=== PATIENT | female | born 1955 | race Caucasian/White ===

== ENCOUNTER 2016-08-22 20:52 | Inpatient (IN) | payer OTHER ==
[~2016-08-22] VITALS: Ht 165.1 cm; Wt 95.7 kg
--- NOTE | ~2016-08-22 | EKG ---
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
--- NOTE | ~2016-08-22 | 2DMMODE ---
[facility] [address] [place] [address] 2 D/M-MODE ECHOCARDIOGRAM Name: KENISHA EVANGELISTA Room #: 212-P [facility] IN ..#: [id number] Admission: 08/23/16 Attend Phys: Quan Cadena MD Discharge: Date of : 59 Date of Service: 08/23/16 1639 Report #: [id number] THIS REPORT FOR: //name// APPROVED REPORT Study performed: 08/23/2016 14:53:41 EXAM: Comprehensive 2D, Doppler, and color-flow Echocardiogram Patient Location: Bedside Room #: 212 Blood Pressure: 100/65 mmHg HR: 88 bpm Other Information Study Quality: Adequate Technically limited study due to poor endocardial definition. Indications Dyspnea Chest Pain Hypertension/HDD Echo Enhancing Agent Indication: Endocardial border delineation Agent/Amount Used: Definity 2 cc 2D Dimensions LVEF(%): 60.28 (>50%) IVSd: 12.40 (7-11mm) LVOT Diam: 20.72 (18-24mm) LVDd: 40.65 mm PWd: 13.35 (7-11mm) Ascending Ao: 26.06 (22-36mm) LVDs: 27.75 (25-40mm) Aortic Root: 28.31 mm Espinosa's LVEF: 60.28 % Volumes Left Atrial Volume (Systole) Single Plane 4CH: 29.97 mL Single Plane 2CH: 33.00 mL LA ESV Index: 18.00 mL/m2 Aortic Valve [facility] [place] [place] [address] 2 D/M-MODE ECHOCARDIOGRAM Name: KENISHA EVANGELISTA Room #: 212-P [facility] IN ..#: [id number] Admission: 08/23/16 Attend Phys: Quan Cadena MD Discharge: Date of : 59 Date of Service: 08/23/16 1639 Report #: [id number] AoV Peak Erik.: 1.33 m/s AO Peak Gr.: 7.04 mmHg LVOT Max P.17 mmHg LVOT Max V: 1.14 m/s Mitral Valve E/A Ratio: 1.0 MV Decel. Time: 180.83 ms MV E Max Erik.: 0.83 m/s MV A Erik.: 0.80 m/s MV PHT: 52.44 ms Pulmonary Valve PV Peak Erik.: 0.81 m/s PV Peak Gr.: 2.62 mmHg Pulmonary Vein P Vein S: 41.6 m/s P Vein D: 32.7 m/s P Vein A Dur.: 28.6 m/s Left Ventricle The left ventricle is normal size. Mild concentric left ventricular hypertrophy. The left ventricular systolic function is normal. The left ventricular ejection fraction is within the normal range. LVEF is 60-65%. Grade I - abnormal relaxation pattern. Right Ventricle The right ventricle is normal size. The right ventricular systolic function is normal. Atria The left atrium size is normal. The right atrium size is normal. Aortic Valve The aortic valve is normal in structure. Aortic valve is calcified. Trace aortic regurgitation. There is no aortic valvular stenosis. Mitral Valve The mitral valve is normal in structure. There is no mitral valve regurgitation noted. No evidence of mitral valve stenosis. Tricuspid Valve The tricuspid valve is normal in structure. There is no tricuspid valve stenosis. There is no tricuspid valve regurgitation noted. [facility] [place] [address] 2 D/M-MODE ECHOCARDIOGRAM Name: KENISHA EVANGELISTA Room #: 212-P [facility] IN M.R.#: [id number] Admission: 08/23/16 Attend Phys: Quan Cadena MD Discharge: Date of : 59 Date of Service: 08/23/16 1639 Report #: [id number] Pulmonic Valve The pulmonary valve is normal in structure. There is no pulmonic valvular regurgitation. Great Vessels The aortic root is normal in size. IVC is not well visualized. Pericardium There is no pericardial effusion. <Conclusion> Technically difficult study. The left ventricle is normal size. Mild concentric left ventricular hypertrophy. The left ventricular systolic function is normal. Grade I - abnormal relaxation pattern. The right ventricle is normal size. The left atrium size is normal. Trace aortic regurgitation. The mitral valve is normal in structure. There is no pericardial effusion. <ELECTRONICALLY SIGNED> By: Russel Ellis MD 08/23/16 1639 1639 1639 Russel Ellis MD /INF
[2016-08-22 21:06] VITALS: BP 132/84
[2016-08-22 23:39] LABS: ABSOLUTE NEUTROPHILS 3.4 thou/uL (1.4-8.2); BASOPHILS 1.3 % (0.0-2.0); EOSINOPHILS 3.9 % (0.0-3.0); HEMOGLOBIN 13.1 gm/dL (12.0-15.0); LYMPHOCYTES 34.6 % (24.0-44.0); MCH 29.5 pg (26.0-34.0); MCHC 33.7 g/dL (28.0-37.0); MCV 87.4 fL (80.0-100.0); PLATELET COUNT 361 thou/uL (150-400); POLYS 52.2 % (36.0-66.0); RBC 4.46 mil/uL (4.20-5.00); RDW 14.1 % (10.5-14.5); WBC 6.4 thou/uL (4.0-11.0)
[2016-08-22 23:44] LABS: MANUAL DIFF NO
[2016-08-22 23:49] LABS: ANION GAP 6 mmol/L (7-16); BUN 12 mg/dL (7-18); CALCIUM 9.4 mg/dL (8.5-10.1); CHLORIDE 101 mmol/L (98-107); CO2 32 mmol/L (21-32); CREATININE 1.1 mg/dL (0.6-1.0); GLUCOSE 135 mg/dL (74-106); POTASSIUM 4.2 mmol/L (3.5-5.1); SODIUM 139 mmol/L (136-145)
[2016-08-23] VITALS (9 sets, daily range): BP systolic 93–125; BP diastolic 55–77
[2016-08-23 00:02] LABS: NT-PRO BRAIN NAT PEPTIDE 7 pg/mL (<300); TROPONIN-I < 0.04 ng/mL (<0.04-0.07)
[2016-08-23] MEDS ORDERED: CLONAZEPAM 0.50.5 M1 PO (00:10)
[2016-08-23] MEDS ORDERED: LEXAPRO 10 MG T10 M2 PO (00:10)
[2016-08-23] MEDS ORDERED: LEVOTHYROXINE0.05 MG PO (00:11)
[2016-08-23] MEDS ORDERED: MIRAPEX0.5 MG PO (00:11)
[2016-08-23] MEDS ORDERED: AMITRIPTYLINE H25 M2 PO (00:11)
[2016-08-23] MEDS ORDERED: WELLBUTRIN XL300 MG PO (00:12)
[2016-08-23] MEDS ORDERED: NEURONTIN 300300 M1 PO (00:12)
[2016-08-23] MEDS ORDERED: PROTONIX40 M1 PO (00:14)
[2016-08-23] MEDS ORDERED: LOSARTAN-HCTZ1 EACH PO (00:14)
[2016-08-23] MEDS ORDERED: CARAFATE 1 GM TA1 G1 PO (00:15)
[2016-08-23] MEDS ORDERED: ZOCOR20 MG PO (00:15)
[2016-08-23 11:15] LABS: CHOLESTEROL 205 mg/dL (<200); HDL CHOLESTEROL 40 mg/dL (>40); LDL CHOLESTEROL 113 mg/dL (<100); TC:HDL 5.1 Ratio (Not establshd); TRIGLYCERIDE 263 mg/dL (<150); VLDL 53 mg/dL (<40)
[2016-08-24 04:38] VITALS: BP 104/65
[2016-08-24 08:10] VITALS: BP 112/62
[2016-08-24 10:30] LABS: HEMATOCRIT 36.9 % (37.0-47.0); HEMOGLOBIN 12.3 gm/dL (12.0-15.0); MCH 29.8 pg (26.0-34.0); MCHC 33.4 g/dL (28.0-37.0); MCV 89.1 fL (80.0-100.0); RBC 4.15 mil/uL (4.20-5.00); RDW 14.6 % (10.5-14.5); WBC 5.1 thou/uL (4.0-11.0)
[2016-08-24 10:38] LABS: CALCIUM 8.6 mg/dL (8.5-10.1); POTASSIUM 4.5 mmol/L (3.5-5.1)
[2016-08-24 15:43] VITALS: BP 116/73
[2016-08-24 20:21] VITALS: BP 108/61
[2016-08-25 03:55] LABS: CALCIUM 8.9 mg/dL (8.5-10.1); CREATININE 1.1 mg/dL (0.6-1.0); POTASSIUM 4.1 mmol/L (3.5-5.1)
[2016-08-25 04:00] VITALS: BP 100/63
[2016-08-25 04:16] LABS: HEMATOCRIT 35.6 % (37.0-47.0); HEMOGLOBIN 11.8 gm/dL (12.0-15.0); MCH 29.4 pg (26.0-34.0); MCHC 33.1 g/dL (28.0-37.0); MCV 88.7 fL (80.0-100.0); RBC 4.01 mil/uL (4.20-5.00); RDW 14.6 % (10.5-14.5); WBC 4.2 thou/uL (4.0-11.0)
[2016-08-25 07:00] VITALS: BP 105/61
[2016-08-25 11:15] VITALS: BP 112/69
[2016-08-25 15:55] VITALS: BP 115/66
[2016-08-25 20:47] VITALS: BP 98/67
[2016-08-26 04:15] LABS: CALCIUM 8.8 mg/dL (8.5-10.1); POTASSIUM 4.1 mmol/L (3.5-5.1)
[2016-08-26 04:17] LABS: HEMATOCRIT 34.2 % (37.0-47.0); HEMOGLOBIN 11.4 gm/dL (12.0-15.0); MCH 29.6 pg (26.0-34.0); MCHC 33.3 g/dL (28.0-37.0); MCV 88.9 fL (80.0-100.0); RBC 3.85 mil/uL (4.20-5.00); RDW 14.2 % (10.5-14.5); WBC 4.8 thou/uL (4.0-11.0)
[2016-08-26 05:08] VITALS: BP 102/59
[2016-08-26 09:42] VITALS: BP 121/75
[2016-08-26] MEDS ORDERED: COLCHICINE0.6 M1 PO (09:53)
[2016-08-26] MEDS ORDERED: aspirin PO (09:53)
[2016-08-26 10:41] VITALS: BP 121/75
== END 2016-08-26 11:27 | disposition home or self-care (01) | DRG 314 ==
LOC: ER 20:52 → EROBS 08-23 01:09 → 2N 08-23 01:09
PROVIDERS: Emergency Medicine; Internal Medicine; Nurse Practitioner Gerontology
DX: I30.9 Acute pericarditis, unspecified (principal); J96.00 Acute respiratory failure, unspecified whether with hypoxia or hypercapnia; I10 Essential (primary) hypertension; E03.9 Hypothyroidism, unspecified; E66.9 Obesity, unspecified; Z68.35 Body mass index [BMI] 35.0-35.9, adult; F41.9 Anxiety disorder, unspecified; F32.9 Major depressive disorder, single episode, unspecified; J45.909 Unspecified asthma, uncomplicated; G25.81 Restless legs syndrome; K21.9 Gastro-esophageal reflux disease without esophagitis; I31.9 Disease of pericardium, unspecified; Z87.01 Personal history of pneumonia (recurrent); Z88.8 Allergy status to other drugs, medicaments and biological substances; Z88.2 Allergy status to sulfonamides; Z79.82 Long term (current) use of aspirin; Z79.899 Other long term (current) drug therapy
CPT/HCPCS: 10081

== ENCOUNTER 2016-09-03 13:47 | Emergency (ER) | payer OTHER ==
[~2016-09-03] VITALS: Ht 165.1 cm; Wt 88.5 kg
--- NOTE | ~2016-09-03 | EKG ---
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
--- NOTE | ~2016-09-03 | 2DMMODE ---
[address] [address] 2 D/M-MODE ECHOCARDIOGRAM Name: KENISHA EVANGELISTA [id number] Admission: 09/03/16 Attend Phys: Discharge: 09/03/16 Date of : 59 Date of Service: 09/03/16 1731 Report #: [id number] THIS REPORT FOR: //name// APPROVED REPORT Study performed: 09/03/2016 15:05:41 EXAM: Comprehensive 2D, Doppler, and color-flow Echocardiogram Patient Location: Bedside Room #: ER 10 Blood Pressure: 125/59 mmHg HR: 109 bpm Other Information Study Quality: Technically Difficult Technically limited study due to poor endocardial definition. Indications Pericardial Effusion Pericarditis Chest Pain Left Ventricle Technically difficult study. The left ventricle is normal size. There is normal left ventricular wall thickness. The overall left ventricular systolic function appears normal. Right Ventricle The right ventricle is normal size. The right ventricular systolic function is normal. Atria The left atrium size is normal. The right atrium size is normal. Aortic Valve The aortic valve is not well visualized. Aortic valve is calcified. Mitral Valve The mitral valve is normal in structure. [address] [address] 2 D/M-MODE ECHOCARDIOGRAM Name: KENISHA EVANGELISTA Room #: DEP [facility]#: [id number] Admission: 09/03/16 Attend Phys: Discharge: 09/03/16 Date of : 59 Date of Service: 09/03/161730 Report #: [id number] Tricuspid Valve The tricuspid valve is normal in structure. Pulmonic Valve The pulmonary valve is normal in structure. Great Vessels The aortic root is normal in size. Pericardium Trace anterior pericardial effusion. <Conclusion> Technically difficult study. The left ventricle is normal size. The overall left ventricular systolic function appears normal. The right ventricle is normal size. The left atrium size is normal. The aortic valve is not well visualized. Aortic valve is calcified. The mitral valve is normal in structure. Trace anterior pericardial effusion. <ELECTRONICALLY SIGNED> By: Russel Ellis MD 09/03/161730 30 30 Russel Ellis MD /INF
[~2016-09-03 13:47] MED LIST: AMITRIPTYLINE H25 M2 PO; CARAFATE 1 GM TA1 G1 PO; CLONAZEPAM 0.50.5 M1 PO; COLCHICINE0.6 M1 PO; LEVOTHYROXINE0.05 MG PO; LEXAPRO 10 MG T10 M2 PO; LOSARTAN-HCTZ1 EACH PO; MIRAPEX0.5 MG PO; NEURONTIN 300300 M1 PO; PROTONIX40 M1 PO; WELLBUTRIN XL300 MG PO; ZOCOR20 MG PO; aspirin PO
[2016-09-03 14:11] LABS: HEMATOCRIT 38.9 % (37.0-47.0); HEMOGLOBIN 12.8 gm/dL (12.0-15.0); MCH 29.2 pg (26.0-34.0); MCHC 32.9 g/dL (28.0-37.0); MCV 88.7 fL (80.0-100.0); RBC 4.39 mil/uL (4.20-5.00); RDW 14.5 % (10.5-14.5); WBC 6.7 thou/uL (4.0-11.0)
[2016-09-03 14:16] LABS: CALCIUM 9.3 mg/dL (8.5-10.1); CREATININE 1.2 mg/dL (0.6-1.0)
[2016-09-03] MEDS ORDERED: INDOMETHACIN 2525 MG PO (15:56)
== END 2016-09-03 16:21 | disposition home or self-care (01) ==
LOC: ER 13:47
PROVIDERS: Emergency Medicine
DX: I31.9 Disease of pericardium, unspecified (principal); G25.81 Restless legs syndrome; Z88.2 Allergy status to sulfonamides; Z88.6 Allergy status to analgesic agent

== ENCOUNTER 2016-09-03 22:13 | Inpatient (IN) | payer OTHER ==
[~2016-09-03] VITALS: Ht 165.1 cm; Wt 94.3 kg
--- NOTE | ~2016-09-03 | S ---
[facility] [place] [address] [place] [address] SURGICAL PATH RPT PROCEDURE Name: DIGNA TAM Room #: 442-P [facility] IN M.R.#: [id number] Admission: 09/04/16 Date of : 59 Discharge: 09/09/16 Report #: [id number] Path Case #: [id number] PATHOLOGY REPORT COLLECTION DATE: 09/08/2016 RECEIVED DATE: 09/09/2016 SUBMITTING PHYS: Dr. Trista Angeles OTHER PHYS: Dr. Carlos Alberto Deluca DO SPECIMEN(S) RECEIVED: A.Bx of epigastric B.Gastric polyp proximal stomach * * * * * * * * * * * * FINAL DIAGNOSIS: A. "BX of epigastric", biopsy: - Gastric mucosa with mild reactive changes and mild chronic inflammation. - Negative H. pylori immunohistochemical stain (block A1; control reacted appropriately). B. "Gastric polyp proximal stomach", biopsy: - Gastric fundic gland polyp. PATHOLOGIST: Ambika Easley M.D. REPORT ELECTRONICALLY SIGNED BY: Ambika Easley M.D. DATE/TIME: 09/10/2016 22:27 * * * * * * * * * * * * GROSS PATHOLOGY: A. Received in formalin labeled "Digna Tam, epigastric," is a segment of gardner soft tissue measuring 0.6 x 0.3 x 0.2 cm in maximum dimension. The specimen is submitted entirely in cassette A1. B. Received in formalin labeled " Digna Tam, gastric polyp proximal stomach," are 2 segments of gardner soft tissue measuring 0.6 x 0.3 x 0.2 cm in maximum dimension and ranging from 0.3 to 0.3 cm in greatest dimension. The specimen is submitted entirely in cassette B1. (VEL; 09/09/2016) CLINICAL HISTORY: N/V INITIAL CPT CODE(S): A; 54192, [address] [facility] [address] [place] [address] SURGICAL PATH RPT PROCEDURE Name: DIGNA TAM Room #: 442-P [facility] IN M.R.#: [id number] Admission: 09/04/16 Date of : 59 Discharge: 09/09/16 Report #: [id number] Path Case #: [id number]; [id number] Professional services performed by [facility] at [address], [place] [address] Technical services performed by [facility] at [address] [place] [address], [place] [address] [address]. Rabia Deluca [facility] [address] [address] PHONE: [phone] DIRECTOR: Ray Choi M.D. * * * END OF REPORT * * *
--- NOTE | ~2016-09-03 | HC ---
[facility] [place] [address] CONSULTATION Name: JUANMARTÍNEZ MichaelN MELBA Room #: 442-P [facility] IN M.R.#: [id number] Admission: 09/04/16 Attend Phys: Abbi Collins MD Discharge: 09/09/16 Date of : 59 Report #: [id number] THIS REPORT FOR: //name// CC: Carlos Alberto Collins MD DATE OF SERVICE: 09/06/2016 REFERRING PROVIDER: Dr. Russel Ellis. CHIEF COMPLAINT: Chest pain, pulmonary nodules and hypoxemia. HISTORY OF PRESENT ILLNESS: The patient is a pleasant 61-year-old woman with a past pulmonary history significant for which she described as bilateral pneumonia about 1 year ago, treated at [facility], also longstanding history of asthma, has been having some increasing symptoms over the last 2 months of chest pain, somewhat pleuritic in nature, but seems to be related to the sternum, low grade fevers. No significant cough, congestion or wheezing, does note difficulty sleeping due to chest pain and dyspnea, had some orthopnea. Had been evaluated at [facility] back earlier in June, in fact workup included a CT scan of the chest, PE protocol as an outpatient by her primary care provider due to an elevated D-dimer, that study was done on 07/01/2016 and reviewed. There was some bilateral mostly posterior lower lobe predominant nodular infiltrates. The patient states she was started on high dose prednisone and nebulizer treatments at home by her abrading machine tender; however, did not notice any significant improvement in symptoms. Symptoms have been persistent in fact she has been in the Emergency Room or seeking other medical care several times in the last 2 months to further evaluate and apparently a recent laboratory may have suggested an elevated MEMO, although record not available for my review at this time. She was presented here for additional evaluation on August 23 and was felt to have pericarditis and was discharged on what appears to be steroids and possibly indomethacin and colchicine without any significant improvement, represented here on with similar complaints. Of note, a CT scan of the chest done on 08/24/2016 showed marked improvement in the nodular infiltrates and lung rodriguez were markedly improved. She is currently being evaluated by Rheumatology for this apparently elevated MEMO. Other laboratories including CRP had been normal, although the serology is pending. She has required 2 liters of oxygen, dropped her oxygen saturation in the high supplemental O2. Prior echocardiograms have been essentially near normal with some mild pulmonary hypertension only noted. ALLERGIES: Include NONSTEROIDAL ANTI-INFLAMMATORIES, SULFA ANTIBIOTICS, TESSALON PERLES and COMPAZINE. [address] [address] CONSULTATION Name: KENISHA EVANGELISTA Room #: 442-P [facility] IN M.R.#: [id number] Admission: 09/04/16 Attend Phys: Abbi Collins MD Discharge: 09/09/16 Date of : 59 Report #: [id number] PAST MEDICAL HISTORY: 1. History of diastolic heart dysfunction. 2. Prior history of esophageal ulcer. 3. History of pneumonia. 4. History of asthma since childhood with more recent recurrence in symptoms. 5. History of pyelonephritis. 6. Hypertension. 7. Pericarditis. 8. Remote history of deep venous thrombosis. 9. Hypothyroidism. PAST SURGICAL HISTORY: Includes laparoscopic cholecystectomy, , appendectomy, tonsillectomy. SOCIAL HISTORY: The patient is a very remote history of tobacco use. 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 FAMILY HISTORY: Negative for any significant pulmonary disease. No family history of sarcoidosis. REVIEW OF SYSTEMS: CONSTITUTIONAL: Low grade fevers. No chills or rigors. ENT: No upper respiratory congestion, rhinorrhea or dysphagia. CARDIOVASCULAR: Chest pain as described in HPI. GASTROINTESTINAL: No nausea, vomiting, diarrhea, constipation or abdominal pain. GENITOURINARY: No dysuria, no frequency. INTEGUMENT: Denies any new rash. MUSCULOSKELETAL: No new specific joint pains or suggest chest pain. NEUROLOGIC: Denies any paresthesias or anesthesia. PHYSICAL EXAMINATION: VITAL SIGNS: Afebrile, pulse 100 and regular, respiratory rate 20, blood pressure 141/77, oxygen saturation 96% on 2 liters. GENERAL: This is an obese, middle-aged woman, does not appear in any distress. HEENT: Clear oropharynx, Mallampati 2 airway, no thrush. No erythema. NECK: Supple, no lymphadenopathy, no thyromegaly. LUNGS: Diminished, but relatively clear. No wheezes or crackles. CARDIOVASCULAR: Heart was regular. No murmurs or rubs noted. ABDOMEN: Soft, nontender, no masses. EXTREMITIES: Without edema. MUSCULOSKELETAL: No joint swelling noted. INTEGUMENT: No significant rash. [facility] [address] [place] [address] CONSULTATION Name: KENISHA EVANGELISTA Room #: 442-P [facility] IN M.R.#: [id number] Admission: 09/04/16 Attend Phys: Abbi Collins MD Discharge: 09/09/16 Date of : 59 Report #: [id number] LABORATORY DATA: Chemistry profile normal except for elevated glucose 167, AST was 44 down trending from 108 on admission. Alkaline phosphatase 119. CBC, white blood cell count 6000, hemoglobin 11, hematocrit 34, platelet count 296, 3% eosinophils, erythrocyte sedimentation rate is 40. Chest x-ray was clear, no parenchymal infiltrates. IMPRESSION: 1. Chest pain of unclear etiology, pericardial disease should be considered, some underlying inflammatory pleuritic component should also be considered if she did an elevated MEMO, although other inflammatory markers not elevated. We would favor followup CT imaging of the chest to reevaluate the nodular infiltrates previously noted in June, although this appeared to be markedly improved on recent imaging little over 2 weeks ago. 2. Hypoxemia, would check arterial blood gas to further evaluate. 3. Hypertension. 4. Elevated liver enzymes, improving with negative ultrasound except for some fatty liver noted. 5. History of esophageal ulcers. SUGGESTIONS: 1. Consider repeat GI evaluation of persistent chest pain. 2. Repeat CT scan of the chest. 3. Await arterial blood gas. 4. Await Rheumatology consultation. 5. Additional recommendations to follow. Thank you for requesting our suggestions. <ELECTRONICALLY SIGNED> By: Horacio Sarkar MD 09/13/16 1453 1441 0253 Horacio Sarkar MD /nt
--- NOTE | ~2016-09-03 | HC ---
[facility] [place] [address] CONSULTATION Name: MARTÍNEZ EVANGELISTAN MELBA Room #: 442-P [facility] IN M.R.#: [id number] Admission: 09/04/16 Attend Phys: Abbi Collins MD Discharge: Date of : 59 Report #: [id number] THIS REPORT FOR: //name// CC: Carlos Alberto Dalton DATE OF SERVICE: 09/05/2016 INDICATIONS: Chest pain. HISTORY OF PRESENT ILLNESS: This is a 61-year-old female who presents with chest pain. She had been recently admitted with similar complaints, diagnosed to have possible chronic pericarditis. Recently, she was admitted to [facility] for chest pains. She reports undergoing cardiac catheterization, found to have no significant CAD. She was diagnosed with pericarditis and discharge. According to the patient, she had persistent pain and she underwent a CT scan of the chest, revealing pericardial effusion. It seems that a motion picture director recommended steroid therapy for about a month. She is unable to take NSAID secondary to prior history of esophageal ulcers. On her last admission, she was managed with high dose aspirin and colchicine, as directed by Dr. Blanchard. The patient reports that her symptoms are still present, worse with any type of movement or exertion. It is not really alleviated with any type of maneuvers. There is no history of fever, chills or diarrhea. PAST MEDICAL HISTORY: Hypertension, GERD, hypercholesterolemia, esophageal ulcer. ALLERGIES: NSAIDs, SULFA, COMPAZINE. CURRENT MEDICATIONS: Please see the MAR for full listing. SOCIAL HISTORY: Denies tobacco use. FAMILY HISTORY: Negative for premature CAD. REVIEW OF SYSTEMS: A full 10-point review of systems performed. Only the pertinent positives and negatives are described in the HPI. PHYSICAL EXAMINATION: VITAL SIGNS: Blood pressure is 110/70, heart rate is 100 beats per minute. GENERAL APPEARANCE: This is an overweight female in no acute respiratory distress. HEAD AND EYES: Normocephalic. Sclerae are anicteric. ENT: Oral mucosa moist. NECK: Supple. LUNGS: Clear to auscultation. [facility] [address] [place] [address] CONSULTATION Name: KENISHA EVANGELISTA Room #: 442-P [facility] IN .R.#: [id number] Admission: 09/04/16 Attend Phys: Abbi Collins MD Discharge: Date of : 59 Report #: [id number] CARDIAC: Regular rate and rhythm, S1, S2 positive. No murmur, no rubs. ABDOMEN: Soft, nontender. Bowel sounds positive. EXTREMITIES: No major joint deformities. No edema. LABORATORY DATA: ECG reveals sinus rhythm, low voltage. Echo from 09/03/2016 reveals normal LV systolic function, minimal anterior pericardial effusion. White count is 4.9, hemoglobin is 11.2. Sodium is 142, creatinine is 1.0. Troponin is negative. ASSESSMENT AND PLAN: 1. Chest pain, rule out chronic pericarditis. As previously discussed, her pain may be manifestation of steroid use during the initial presentation. Now, she has chronic pain that is not adequately controlled with the recurrent regimen. She seems to have an intolerance to NSAIDs. The plan now is to continue with high dose aspirin and colchicine. We will defer to Dr. Blanchard whether or not to reinstitute a short trial of steroids. In addition, the patient reports having high MEMO and is waiting for an evaluation with rheumatology to rule out autoimmune disorder. 2. Hypertension, continue medications. 3. Gastroesophageal reflux disease, continue PPI. 4. Hypercholesterolemia, continue with statin therapy. Thank you for allowing me to participate in the care of your patient. <ELECTRONICALLY SIGNED> By: Russel Ellis MD 09/06/16 0902 1938 2100 Russel Ellis MD /nt
--- NOTE | ~2016-09-03 | EKG ---
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 : 1955 Requested By: Rabia Deluca Order Number: [id number] MD: Christopher Watkins Measurements Intervals [place] Rate: 101 P: 40 TX: 156 QRS: 12 QRSD: 102 T: 57 QT: 342 QTc: 444 Interpretive Statements Sinus tachycardia Low voltage, precordial leads Compared to ECG 08/22/2016 21:03:40 Low QRS voltage now present Sinus rhythm no longer present Electronically Signed On 09-06-2016 8:39:17 CDT by Christopher Watkins [email or web address] <ELECTRONICALLY SIGNED> By: Christopher Watkins MD 09/06/16 0839 2225 2225 Christopher Watkins MD /EPI
--- NOTE | ~2016-09-03 | P ---
[facility] [place] [address] PROCEDURE REPORT Name: KENISHA EVANGELISTA Room #: 442-P ADM IN M.R.#: [id number] Admission: 09/04/16 Attend Phys: Abbi Collins MD Discharge: Date of : 59 Report #: [id number] THIS REPORT FOR: //name// CC: Carlos Alberto Deluca DO DATE OF SERVICE: 09/08/2016 This is a patient of Dr. Abbi Collins. PROCEDURE: EGD with biopsies. INDICATION FOR PROCEDURE: This patient has had nausea, vomiting and chest pain of undetermined etiology. Informed consent for this procedure was obtained prior to the administration of any medication. The risks of the procedure which include bleeding, perforation, infection, complications of sedation and the possibility I could miss something have been explained to the patient and she has indicated her consent by signing. Propofol was slowly titrated before and during this procedure for patient comfort by the anesthesia service. The [employer] upper videoscope was introduced through the upper esophageal sphincter and advanced under direct visualization to the descending duodenum. Findings are noted on withdrawal of the scope. The duodenal mucosa appears normal throughout its entirety. Pylorus, mild erythema is noted. Antrum, erythematous mucosa and there is a watermelon appearance to the antrum of the stomach, it is nonbleeding. Biopsies obtained from the antrum times 1 for histopathology. Body, normal mucosa. Biopsies obtained times 1 for histopathology. In the proximal body of the stomach, there is a 5 mm sessile polyp removed in toto in 2 pieces with a biopsy forceps and sent to pathology lab. Good hemostasis was noted after that polypectomy. Cardia and fundus appeared normal. Scope was withdrawn to the esophagus. The Z-line is appropriately located at the top of the gastric folds and appears normal. The esophageal mucosa appears normal throughout its entirety. The scope was withdrawn. The patient went to the recovery area in stable condition. She tolerated the procedure well. IMPRESSION: 1. Mild gastric erythema, biopsies of antrum and body pending. 2. A 5 mm polyp in the proximal stomach removed as above. 3. Normal esophagus and duodenum. RECOMMENDATIONS: Are to await the path report and continue the current medications. We will resume her usual diet. [address] [address] PROCEDURE REPORT Name: MARTÍNEZ EVANGELISTAAlec JACOBSAN Room #: 442-P [facility] IN .R.#: [id number] Admission: 09/04/16 Attend Phys: Abbi Collins MD Discharge: Date of : 59 Report #: [id number] Thank you very much once again for allowing me to participate in her care, Dr. Blanchard and Dr. Deluca. <ELECTRONICALLY SIGNED> By: Trista Angeles DO 09/09/16 0949 1228 021 Trista Angeles DO /nt
[~2016-09-03 22:13] MED LIST changes: +INDOMETHACIN 2525 MG PO
[2016-09-03 22:14] VITALS: BP 102/59
[2016-09-03 23:54] LABS: ANION GAP 10 mmol/L (7-16); BUN 22 mg/dL (7-18); CHLORIDE 104 mmol/L (98-107); CO2 26 mmol/L (21-32); CREATININE 1.6 mg/dL (0.6-1.0); GLUCOSE 122 mg/dL (74-106); POTASSIUM 4.4 mmol/L (3.5-5.1); SODIUM 140 mmol/L (136-145)
[2016-09-04 00:07] LABS: ALBUMIN 3.4 g/dL (3.4-5.0); ALKALINE PHOSPHATASE 129 U/L (46-116); NT-PRO BRAIN NAT PEPTIDE 12 pg/mL (<300); SGOT 108 U/L (15-37); SGPT 111 U/L (30-65); TOTAL BILIRUBIN 0.4 mg/dL (<0.1-1.0); TOTAL PROTEIN 7.2 g/dL (6.4-8.2); TROPONIN-I < 0.04 ng/mL (<0.04-0.07)
[2016-09-04 01:20] LABS: ABSOLUTE NEUTROPHILS 3.9 thou/uL (1.4-8.2); BASOPHILS 0.7 % (0.0-2.0); EOSINOPHILS 3.1 % (0.0-3.0); HEMATOCRIT 35.6 % (37.0-47.0); HEMOGLOBIN 12.1 gm/dL (12.0-15.0); LYMPHOCYTES 31.2 % (24.0-44.0); MCH 29.8 pg (26.0-34.0); MCHC 34.1 g/dL (28.0-37.0); MCV 87.6 fL (80.0-100.0); MONOCYTES 9.3 % (1.0-8.0); PLATELET COUNT 334 thou/uL (150-400); POLYS 55.7 % (36.0-66.0); RBC 4.06 mil/uL (4.20-5.00); RDW 14.5 % (10.5-14.5)
[2016-09-04 01:22] LABS: MANUAL DIFF NO
[2016-09-04 01:35] LABS: PROTIME 10.8 Seconds (9.3-11.4)
[2016-09-04 01:44] LABS: APTT 24.5 Seconds (24.5-32.8)
[2016-09-04 02:19] VITALS: BP 106/47
[2016-09-04 02:30] VITALS: BP 100/52
[2016-09-04 06:00] VITALS: BP 128/68
[2016-09-04 08:00] VITALS: BP 131/74
[2016-09-04 10:54] LABS: URINE BILIRUBIN NEGATIVE (Negative); URINE BLOOD NEGATIVE (Negative); URINE COLOR YELLOW; URINE GLUCOSE-RANDOM* NEGATIVE (Negative); URINE KETONES NEGATIVE (Negative); URINE NITRITE NEGATIVE (Negative); URINE PROTEIN (DIPSTICK) NEGATIVE (Negative); URINE SPECIFIC GRAVITY >= 1.030 (1.003-1.035); URINE UROBILINOGEN 0.2 E.U./dl (0.2-1.0)
[2016-09-04 16:06] LABS: URINE CREATININE-RANDOM* 139.2 mg/dL (Not Estab.); URINE PROTEIN-RANDOM* 12.4 mg/dL (Not Estab.)
[2016-09-04 20:15] VITALS: BP 104/53
[2016-09-05 04:33] LABS: HEMATOCRIT 33.2 % (37.0-47.0); HEMOGLOBIN 11.2 gm/dL (12.0-15.0); MCH 29.9 pg (26.0-34.0); MCHC 33.6 g/dL (28.0-37.0); RBC 3.73 mil/uL (4.20-5.00); RDW 14.5 % (10.5-14.5); WBC 4.9 thou/uL (4.0-11.0)
[2016-09-05 04:48] LABS: ALBUMIN 2.8 g/dL (3.4-5.0); CALCIUM 8.5 mg/dL (8.5-10.1); POTASSIUM 4.2 mmol/L (3.5-5.1); TOTAL BILIRUBIN 0.3 mg/dL (<0.1-1.0); TOTAL PROTEIN 6.4 g/dL (6.4-8.2)
[2016-09-05 06:04] VITALS: BP 112/55
[2016-09-05 08:03] VITALS: BP 104/49
[2016-09-05 16:02] VITALS: BP 83/47
[2016-09-05 19:30] VITALS: BP 120/82
[2016-09-06 04:00] VITALS: BP 141/83
[2016-09-06 07:27] LABS: HEMATOCRIT 33.8 % (37.0-47.0); HEMOGLOBIN 11.3 gm/dL (12.0-15.0); MCH 29.3 pg (26.0-34.0); MCHC 33.3 g/dL (28.0-37.0); RBC 3.85 mil/uL (4.20-5.00); RDW 14.3 % (10.5-14.5); WBC 6.1 thou/uL (4.0-11.0)
[2016-09-06 07:30] VITALS: BP 141/77
[2016-09-06 07:47] LABS: ALBUMIN 3.1 g/dL (3.4-5.0); CALCIUM 8.9 mg/dL (8.5-10.1); POTASSIUM 4.4 mmol/L (3.5-5.1); TOTAL BILIRUBIN 0.4 mg/dL (<0.1-1.0); TOTAL PROTEIN 6.9 g/dL (6.4-8.2)
[2016-09-06 13:19] LABS: ABG SAMPLE TYPE ARTERIAL; BE(vivo) 3.5 mmol/L (-2 to +3); HCO3 28.5 mmol/L (22.0-26.0); LACTATE 2.39 mmol/L (0.5-2.0); O2Hb 94.2 % (92.0-98.0); PCO2 44.6 mmHg (35.0-45.0); STICK SITE L.RADIAL; pH 7.423 (7.360-7.450); sO2 95.1 % (92.0-98.0); tCO2 29.8 mmol/L (24.0-30.0)
[2016-09-06 15:30] VITALS: BP 133/72
[2016-09-06 20:20] VITALS: BP 120/64
[2016-09-07 04:04] VITALS: BP 125/69
[2016-09-07 07:15] VITALS: BP 121/72
[2016-09-07] MEDS ORDERED: CEFUROXIME250 MG PO (13:01)
[2016-09-07] MEDS ORDERED: ALBUTEROL2.5 MG/31 INH (13:01)
[2016-09-07] MEDS ORDERED: INDOMETHACIN 2525 MG PO (13:01)
[2016-09-07] MEDS ORDERED: HYDROCODONE-APA1 TA1 PO (13:58)
[2016-09-07 15:20] VITALS: BP 142/76
[2016-09-07 19:35] VITALS: BP 126/69
[2016-09-08 04:30] VITALS: BP 132/78
[2016-09-08 06:05] LABS: HEMATOCRIT 32.6 % (37.0-47.0); HEMOGLOBIN 10.9 gm/dL (12.0-15.0); MCH 29.6 pg (26.0-34.0); MCHC 33.5 g/dL (28.0-37.0); MCV 88.4 fL (80.0-100.0); RBC 3.69 mil/uL (4.20-5.00); RDW 14.3 % (10.5-14.5)
[2016-09-08 07:17] VITALS: BP 117/69
[2016-09-08 08:59] LABS: ALBUMIN 2.9 g/dL (3.4-5.0); CALCIUM 8.4 mg/dL (8.5-10.1); POTASSIUM 4.1 mmol/L (3.5-5.1); TOTAL BILIRUBIN 0.2 mg/dL (<0.1-1.0); TOTAL PROTEIN 6.2 g/dL (6.4-8.2)
[2016-09-08 15:29] VITALS: BP 126/77
[2016-09-08 20:31] VITALS: BP 143/79
[2016-09-09 05:28] VITALS: BP 133/83
[2016-09-09 08:30] VITALS: BP 108/71
[2016-09-09 11:08] VITALS: BP 108/71
[2016-09-13 22:09] LABS: INFLUENZA B Negative (Negative); METAPNEUMOVIRUS Negative (Negative)
== END 2016-09-09 11:53 | disposition home or self-care (01) | DRG 315 ==
LOC: ER 22:13 → EROBS 09-04 01:36 → 4S 09-04 01:36
PROVIDERS: Emergency Medicine; Family Medicine; Hospitalist; Internal Medicine Pulmonary Disease; Nurse Practitioner Adult Health
PROC: B548ZZA Ultrasonography of Superior Vena Cava, Guidance (ICD-10-PCS; 2016-09-04)
PROC: 02HV33Z Insertion of Infusion Device into Superior Vena Cava, Percutaneous Approach (ICD-10-PCS; 2016-09-04)
PROC: 0DB68ZX Excision of Stomach, Via Natural or Artificial Opening Endoscopic, Diagnostic (ICD-10-PCS; principal; 2016-09-08)
DX: I31.9 Disease of pericardium, unspecified (principal); N17.9 Acute kidney failure, unspecified; E44.1 Mild protein-calorie malnutrition; K21.9 Gastro-esophageal reflux disease without esophagitis; I10 Essential (primary) hypertension; E78.00 Pure hypercholesterolemia, unspecified; R09.02 Hypoxemia; J45.909 Unspecified asthma, uncomplicated; R74.0 Nonspecific elevation of levels of transaminase and lactic acid dehydrogenase [LDH]; E03.9 Hypothyroidism, unspecified; G25.81 Restless legs syndrome; E66.01 Morbid (severe) obesity due to excess calories; E78.5 Hyperlipidemia, unspecified; R91.1 Solitary pulmonary nodule; Z85.01 Personal history of malignant neoplasm of esophagus; Z90.49 Acquired absence of other specified parts of digestive tract; Z88.2 Allergy status to sulfonamides; Z68.34 Body mass index [BMI] 34.0-34.9, adult; Z88.8 Allergy status to other drugs, medicaments and biological substances; Z86.718 Personal history of other venous thrombosis and embolism; Z79.899 Other long term (current) drug therapy; Z87.891 Personal history of nicotine dependence
CPT/HCPCS: 10100; 27001; 52295; 62110; 62900; 70005

== ENCOUNTER 2016-09-20 13:56 | Emergency (ER) | payer OTHER ==
[~2016-09-20] VITALS: Ht 165.1 cm; Wt 90.7 kg
--- NOTE | ~2016-09-20 | EKG ---
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 : 1955 Requested By: Maria Alejandra Calderón Order Number: [id number] MD: Christopher Watkins Measurements Intervals [place] Rate: 87 P: 51 MD: 167 QRS: 6 QRSD: 93 T: 54 QT: 370 QTc: 445 Interpretive Statements Sinus rhythm Consider left atrial enlargement Low voltage, precordial leads Compared to ECG 09/03/2016 22:25:37 Sinus tachycardia no longer present Electronically Signed On 09-20-2016 21:20:57 CDT by Christopher Watkins [email or web address] <ELECTRONICALLY SIGNED> By: Christopher Watkins MD 09/20/162119 00 00 Christopher Watkins MD /DORIS
[~2016-09-20 13:56] MED LIST changes: +ALBUTEROL2.5 MG/31 INH; +CEFUROXIME250 MG PO; +HYDROCODONE-APA1 TA1 PO
[2016-09-20 15:06] LABS: ABSOLUTE NEUTROPHILS 4.3 thou/uL (1.4-8.2); BASOPHILS 1.3 % (0.0-2.0); EOSINOPHILS 2.6 % (0.0-3.0); HEMATOCRIT 36.7 % (37.0-47.0); HEMOGLOBIN 12.1 gm/dL (12.0-15.0); LYMPHOCYTES 26.5 % (24.0-44.0); MCH 29.6 pg (26.0-34.0); MCV 89.6 fL (80.0-100.0); MONOCYTES 7.9 % (1.0-8.0); PLATELET COUNT 335 thou/uL (150-400); POLYS 61.7 % (36.0-66.0); RDW 14.5 % (10.5-14.5)
[2016-09-20 15:09] LABS: MANUAL DIFF NO
[2016-09-20 15:20] LABS: ANION GAP 8 mmol/L (7-16); BUN 16 mg/dL (7-18); CALCIUM 9.1 mg/dL (8.5-10.1); CHLORIDE 104 mmol/L (98-107); CO2 28 mmol/L (21-32); CREATININE 1.1 mg/dL (0.6-1.0); GLUCOSE 157 mg/dL (74-106); POTASSIUM 4.1 mmol/L (3.5-5.1); SODIUM 140 mmol/L (136-145)
[2016-09-20 15:30] LABS: TROPONIN-I < 0.04 ng/mL (<0.04-0.07)
[2016-09-20] MEDS ORDERED: COLCHICINE0.6 M1 PO (16:31)
[2016-09-20] MEDS ORDERED: NORCO 5-325 TA1 EACH PO (16:31)
[2016-09-21] MEDS ORDERED: HYDROCODONE-APA1 TA1 PO (16:20)
== END 2016-09-20 16:46 | disposition home or self-care (01) ==
LOC: ER 13:56
PROVIDERS: Emergency Medicine
DX: I31.9 Disease of pericardium, unspecified (principal); G25.81 Restless legs syndrome; I10 Essential (primary) hypertension; I50.1 Left ventricular failure, unspecified; J45.909 Unspecified asthma, uncomplicated; Z90.89 Acquired absence of other organs; Z88.2 Allergy status to sulfonamides; Z88.6 Allergy status to analgesic agent; Z88.8 Allergy status to other drugs, medicaments and biological substances

== ENCOUNTER 2016-09-21 13:53 | Emergency (ER) | payer OTHER ==
[~2016-09-21] VITALS: Ht 165.1 cm; Wt 90.7 kg
--- NOTE | ~2016-09-21 | EKG ---
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 : 1955 Requested By: Maria Alejandra Calderón Order Number: [id number] MD: Christopher Watkins Measurements Intervals [place] Rate: 101 P: 44 MT: 161 QRS: -1 QRSD: 100 T: 46 QT: 347 QTc: 450 Interpretive Statements Sinus tachycardia Low voltage, precordial leads Baseline wander in lead(s) V3,V4,V5 Compared to ECG 09/20/2016 14:01:35 Sinus rhythm no longer present Electronically Signed On 09-21-2016 17:15:02 CDT by Christopher Watkins [email or web address] <ELECTRONICALLY SIGNED> By: Christopher Watkins MD 09/21/16 1715 01 140 Christopher Watkins MD /EPI
[~2016-09-21 13:53] MED LIST changes: +NORCO 5-325 TA1 EACH PO
[2016-09-21 15:35] LABS: ABSOLUTE NEUTROPHILS 5.2 thou/uL (1.4-8.2); BASOPHILS 0.7 % (0.0-2.0); EOSINOPHILS 2.2 % (0.0-3.0); HEMATOCRIT 37.1 % (37.0-47.0); HEMOGLOBIN 12.2 gm/dL (12.0-15.0); MCHC 32.8 g/dL (28.0-37.0); MCV 88.5 fL (80.0-100.0); MONOCYTES 6.5 % (1.0-8.0); PLATELET COUNT 318 thou/uL (150-400); POLYS 65.6 % (36.0-66.0); RBC 4.19 mil/uL (4.20-5.00); RDW 14.6 % (10.5-14.5)
[2016-09-21 15:38] LABS: MANUAL DIFF NO
[2016-09-21 15:48] LABS: ANION GAP 6 mmol/L (7-16); BUN 18 mg/dL (7-18); CALCIUM 8.8 mg/dL (8.5-10.1); CHLORIDE 105 mmol/L (98-107); CO2 30 mmol/L (21-32); CREATININE 1.3 mg/dL (0.6-1.0); GLUCOSE 131 mg/dL (74-106); POTASSIUM 3.9 mmol/L (3.5-5.1); SODIUM 141 mmol/L (136-145)
[2016-09-21 15:56] LABS: TROPONIN-I < 0.04 ng/mL (<0.04-0.07)
[2016-09-21] MEDS ORDERED: HYDROCODONE-APA1 TA1 PO (16:20)
== END 2016-09-21 16:31 | disposition home or self-care (01) ==
LOC: ER 13:53
PROVIDERS: Emergency Medicine
DX: R07.2 Precordial pain (principal); I10 Essential (primary) hypertension; J45.909 Unspecified asthma, uncomplicated; E03.9 Hypothyroidism, unspecified; Z90.49 Acquired absence of other specified parts of digestive tract; Z86.718 Personal history of other venous thrombosis and embolism; Z98.890 Other specified postprocedural states; Z88.2 Allergy status to sulfonamides; Z88.6 Allergy status to analgesic agent; Z88.8 Allergy status to other drugs, medicaments and biological substances; F10.99 Alcohol use, unspecified with unspecified alcohol-induced disorder

== ENCOUNTER 2016-09-22 15:31 | Emergency (ER) | payer OTHER ==
[~2016-09-22] VITALS: Ht 152.4 cm; Wt 88.5 kg
--- NOTE | ~2016-09-22 | EKG ---
[address] [place] [address] ELECTROCARDIOGRAM REPORT Name: JUANAlecKENISHA MELBA Room #: DEP 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 : 1955 Requested By: Benny Wayne Order Number: [id number] MD: Amado Nolan Measurements Intervals [place] Rate: 101 P: 47 [place]: 169 QRS: 2 QRSD: 104 T: 48 QT: 354 QTc: 459 Interpretive Statements Sinus tachycardia Low voltage, precordial leads Baseline wander in lead(s) V5 Compared to ECG 09/21/2016 14:02:06 No significant changes Electronically Signed On 09-23-2016 7:20:43 CDT by Amado Nolan [email or web address] <ELECTRONICALLY SIGNED> By: Amado Nolan MD, [facility] 09/23/16 0720 1539 1539 Amado Nolan MD, [facility] /EPI
[2016-09-22 16:11] LABS: ABSOLUTE NEUTROPHILS 3.6 thou/uL (1.4-8.2); BASOPHILS 1.2 % (0.0-2.0); EOSINOPHILS 3.3 % (0.0-3.0); HEMATOCRIT 32.8 % (37.0-47.0); HEMOGLOBIN 10.8 gm/dL (12.0-15.0); LYMPHOCYTES 29.1 % (24.0-44.0); MCH 29.5 pg (26.0-34.0); MCHC 33.1 g/dL (28.0-37.0); MCV 89.2 fL (80.0-100.0); MONOCYTES 7.6 % (1.0-8.0); PLATELET COUNT 284 thou/uL (150-400); POLYS 58.8 % (36.0-66.0); RBC 3.67 mil/uL (4.20-5.00); RDW 14.5 % (10.5-14.5); WBC 6.2 thou/uL (4.0-11.0)
[2016-09-22 16:12] LABS: MANUAL DIFF NO
[2016-09-22 16:18] LABS: ANION GAP 7 mmol/L (7-16); BUN 17 mg/dL (7-18); CALCIUM 8.5 mg/dL (8.5-10.1); CHLORIDE 104 mmol/L (98-107); CO2 28 mmol/L (21-32); CREATININE 1.2 mg/dL (0.6-1.0); GLUCOSE 184 mg/dL (74-106); POTASSIUM 4.1 mmol/L (3.5-5.1); SODIUM 139 mmol/L (136-145)
[2016-09-22 16:30] LABS: NT-PRO BRAIN NAT PEPTIDE 17 pg/mL (<300); TROPONIN-I < 0.04 ng/mL (<0.04-0.07)
== END 2016-09-22 19:30 | disposition left against medical advice (07) ==
LOC: ER 15:31
PROVIDERS: Nurse Practitioner
DX: I31.9 Disease of pericardium, unspecified (principal); G25.81 Restless legs syndrome; I10 Essential (primary) hypertension; J45.909 Unspecified asthma, uncomplicated; E03.9 Hypothyroidism, unspecified; Z90.49 Acquired absence of other specified parts of digestive tract; Z90.89 Acquired absence of other organs; Z86.718 Personal history of other venous thrombosis and embolism; Z88.2 Allergy status to sulfonamides; Z88.6 Allergy status to analgesic agent; Z88.8 Allergy status to other drugs, medicaments and biological substances

== ENCOUNTER 2016-11-07 20:23 | Observation (INO) | payer OTHER ==
[~2016-11-07] VITALS: Ht 165.1 cm; Wt 129.3 kg
--- NOTE | ~2016-11-07 | EKG ---
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 : 1955 Requested By: Viktor Patterson Order Number: [id number] MD: Christopher Watkins Measurements Intervals [place] Rate: 103 P: 53 [place]: 173 QRS: 0 QRSD: 108 T: 40 QT: 377 QTc: 494 Interpretive Statements Sinus tachycardia Probable left atrial enlargement Borderline prolonged QT interval Baseline wander in lead(s) II,III,aVF Compared to ECG 09/22/2016 15:39:02 No significant changes Electronically Signed On 11-07-2016 22:33:55 CDT by Christopher Watkins [email or web address] <ELECTRONICALLY SIGNED> By: Christopher Watkins MD 11/07/16 2233 2030 29 Christopher Watkins MD /EPI
[2016-11-07 20:23] VITALS: BP 178/100
[2016-11-07 21:00] LABS: ABSOLUTE NEUTROPHILS 4.6 thou/uL (1.4-8.2); BASOPHILS 0.4 % (0.0-2.0); HEMATOCRIT 33.7 % (37.0-47.0); HEMOGLOBIN 11.3 gm/dL (12.0-15.0); MCH 28.6 pg (26.0-34.0); MCHC 33.5 g/dL (28.0-37.0); MCV 85.3 fL (80.0-100.0); MONOCYTES 7.5 % (1.0-8.0); PLATELET COUNT 357 thou/uL (150-400); POLYS 60.1 % (36.0-66.0); RBC 3.95 mil/uL (4.20-5.00); RDW 14.9 % (10.5-14.5); WBC 7.7 thou/uL (4.0-11.0)
[2016-11-07 21:03] LABS: MANUAL DIFF NO
[2016-11-07 21:09] LABS: ANION GAP 5 mmol/L (7-16); BUN 13 mg/dL (7-18); CALCIUM 8.6 mg/dL (8.5-10.1); CHLORIDE 104 mmol/L (98-107); CO2 29 mmol/L (21-32); CREATININE 1.1 mg/dL (0.6-1.0); SODIUM 138 mmol/L (136-145)
[2016-11-07 21:16] LABS: ALBUMIN 3.3 g/dL (3.4-5.0); ALKALINE PHOSPHATASE 130 U/L (46-116); MAGNESIUM 1.8 mg/dL (1.8-2.4); SGOT 46 U/L (15-37); SGPT 55 U/L (30-65); TOTAL BILIRUBIN 0.3 mg/dL (<0.1-1.0); TOTAL PROTEIN 7.5 g/dL (6.4-8.2); TROPONIN-I < 0.04 ng/mL (<0.04-0.07)
[2016-11-07 21:18] LABS: GLUCOSE 158 mg/dL (74-106)
[2016-11-07 22:21] VITALS: BP 145/76
[2016-11-07] MEDS ORDERED: PERCOCET 7.5-31 EACH PO (22:47)
[2016-11-07 22:50] VITALS: BP 160/87
[2016-11-07 23:20] VITALS: BP 160/87
[2016-11-08 03:11] VITALS: BP 118/78
[2016-11-08 03:37] LABS: CHOLESTEROL 181 mg/dL (<200); HDL CHOLESTEROL 34 mg/dL (>40); LDL CHOLESTEROL 104 mg/dL (<100); TC:HDL 5.3 Ratio (Not establshd); TRIGLYCERIDE 218 mg/dL (<150); VLDL 44 mg/dL (<40)
[2016-11-08 03:40] LABS: SERUM ASSESSMENT Clear
[2016-11-08 07:40] VITALS: BP 136/83
[2016-11-08 11:45] VITALS: BP 146/92
[2016-11-08 17:10] VITALS: BP 104/67
[2016-11-08 19:09] VITALS: BP 104/62
[2016-11-09 03:01] LABS: HEMATOCRIT 32.8 % (37.0-47.0); HEMOGLOBIN 10.7 gm/dL (12.0-15.0); MCH 28.4 pg (26.0-34.0); MCHC 32.7 g/dL (28.0-37.0); MCV 86.9 fL (80.0-100.0); RBC 3.78 mil/uL (4.20-5.00); RDW 14.8 % (10.5-14.5); WBC 7.1 thou/uL (4.0-11.0)
[2016-11-09 03:07] VITALS: BP 142/82
[2016-11-09 03:11] LABS: CALCIUM 8.6 mg/dL (8.5-10.1); CREATININE 1.1 mg/dL (0.6-1.0); POTASSIUM 3.6 mmol/L (3.5-5.1)
[2016-11-09 04:07] LABS: GLYCOHEMOGLOBIN (HGB A1C) 6.9 % (4.8-5.6)
[2016-11-09 07:45] VITALS: BP 149/86
[2016-11-09 11:45] VITALS: BP 140/86
[2016-11-09] MEDS ORDERED: CYCLOBENZAPRINE5 MG PO (12:26)
[2016-11-09 13:49] VITALS: BP 140/86
== END 2016-11-09 14:30 | disposition home or self-care (01) ==
LOC: ER 20:23 → 2N 21:46 → EROBS 21:46 → 2N 22:32
PROVIDERS: Emergency Medicine; Hospitalist; Nurse Practitioner Acute Care
DX: R07.89 Other chest pain (principal); I31.9 Disease of pericardium, unspecified; R06.00 Dyspnea, unspecified; I10 Essential (primary) hypertension; F32.9 Major depressive disorder, single episode, unspecified; M54.2 Cervicalgia; E78.5 Hyperlipidemia, unspecified; K27.9 Peptic ulcer, site unspecified, unspecified as acute or chronic, without hemorrhage or perforation; E03.9 Hypothyroidism, unspecified; R11.0 Nausea; G43.909 Migraine, unspecified, not intractable, without status migrainosus; Z87.891 Personal history of nicotine dependence

== ENCOUNTER 2017-01-09 20:37 | Inpatient (IN) | payer OTHER ==
[~2017-01-09] VITALS: Ht 5 cm; Wt 98.6 kg
--- NOTE | ~2017-01-09 | S ---
[facility] [place] [address] SURGICAL PATH RPT PROCEDURE Name: MARTÍNEZ TAMN MELBA Room #: 214-P DIS IN M.R.#: [id number] Admission: 01/09/17 Date of : 59 Discharge: 01/12/17 Report #: [id number] Path Case #: [id number] PATHOLOGY REPORT COLLECTION DATE: 01/11/2017 RECEIVED DATE: 01/12/2017 SUBMITTING PHYS: Dr. Quan Cadena OTHER PHYS: Dr. Waldemar Michel SPECIMEN(S) RECEIVED: A.Small bowel B.Antrum C.Gastric polyp D.Distal esophagus E.Mid esophagus * * * * * * * * * * * * FINAL DIAGNOSIS: A. Small intestinal mucosa, "small bowel biopsy": - No obvious diagnostic changes. - There is no evidence of acute cryptitis, granulomas, adenomatous change, sprue-like changes, or malignancy. B. Gastric biopsy, antrum: - Mild chronic reactive gastropathy with mild chronic inflammation. - The immunoperoxidase stains for Helicobacter pylori is negative. C. Gastric biopsy, "gastric polyp biopsy": - Polypoid gastric mucosa with early hyperplastic changes. - There is no evidence of adenomatous change, high-grade dysplasia, or malignancy. D. 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 - There is no evidence of dysplasia or malignancy. E. Squamous mucosa, "mid esophagus biopsy": - Esophagitis with reactive squamous mucosa. - There is no evidence of goblet cell metaplasia, dysplasia, or malignancy. (SHA:mgr; 01/13/2017) PATHOLOGIST: Jay Lawrence M.D. REPORT ELECTRONICALLY SIGNED BY: Jay Lawrence M.D. DATE/TIME: 01/13/2017 12:49 * * * * * * * * * * * * GROSS PATHOLOGY: A. Received in formalin labeled "Digna Tam, small bowel r/o [address] [address] SURGICAL PATH RPT PROCEDURE Name: JEAN CARLOSDIGNA MELBA Room #: 214-P DIS IN M.R.#: [id number] Admission: 01/09/17 Date of : 59 Discharge: 01/12/17 Report #: [id number] Path Case #: [id number] celiac," are 2 segments of gardner soft tissue measuring 0.5 x 0.3 with 0.3 cm in aggregate dimensions and ranging from 0.2 to 0.3 cm in maximum dimension. The specimen is submitted entirely in cassette A1. B. Received in formalin labeled "Digna Tam, antrum r/o H. pylori," is a segment of gardner soft tissue measuring 0.7 cm in maximum dimension. The specimen is submitted entirely in cassette B1. C. Received in formalin labeled "Digna Tam, gastric polyp," are 2 segments of gardner soft tissue measuring 0.6 x 0.2 x 0.3 cm in aggregate dimensions and ranging from 0.2 to 0.4 cm in maximum dimension. The specimen is submitted entirely in cassette C1. D. Received in formalin labeled "Digna Tam, distal esophagus r/o eosinophilic esophagitis," are 2segments of gardner soft tissue measuring 1.0 x 0.4 x 0.2 cm in aggregate dimensions and ranging from 0.5 to 0.6 cm in maximum dimension. The specimen is submitted entirely in cassette D1. E. Received in formalin labeled "Digna Tam, mid esophagus r/o eosinophilic esophagitis," are 2 segments of gardner soft tissue measuring 0.7 x 0.3 x 0.3 cm in aggregate dimensions and ranging from 0.3 to 0.5 cm in maximum dimension. The specimen is submitted entirely in cassette E1. (TSD; 01/12/2017) CLINICAL HISTORY: Pre-OP DX: Chest pain, occasional dysphagia, nausea/vomiting Post-OP DX: Hiatal hernia, gastritis INITIAL CPT CODE(S): A; 62668 B; 84237, 41463 C; 45538 D; 69391 E; 51571 Professional services performed by [facility] at [place] [address], [place] [address] Technical services performed by [facility] at [address] [place] [address], [address], [place] [address]. [facility] [address] [place] [address] PHONE: [phone] DIRECTOR: Ray Choi M.D. * * * END OF REPORT * * *
--- NOTE | ~2017-01-09 | EKG ---
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
[~2017-01-09 20:37] MED LIST changes: +CYCLOBENZAPRINE5 MG PO; +PERCOCET 7.5-31 EACH PO
[2017-01-09 20:52] VITALS: BP 167/101
[2017-01-09 21:49] LABS: ABSOLUTE NEUTROPHILS 4.2 thou/uL (1.4-8.2); BASOPHILS 1.4 % (0.0-2.0); EOSINOPHILS 3.2 % (0.0-3.0); HEMATOCRIT 33.6 % (37.0-47.0); HEMOGLOBIN 10.9 gm/dL (12.0-15.0); LYMPHOCYTES 30.5 % (24.0-44.0); MCHC 32.4 g/dL (28.0-37.0); MCV 83.2 fL (80.0-100.0); MONOCYTES 8.5 % (1.0-8.0); PLATELET COUNT 334 thou/uL (150-400); POLYS 56.4 % (36.0-66.0); RBC 4.04 mil/uL (4.20-5.00); RDW 15.7 % (10.5-14.5); WBC 7.5 thou/uL (4.0-11.0)
[2017-01-09 21:50] LABS: MANUAL DIFF NO
[2017-01-09 21:53] LABS: ANION GAP 3 mmol/L (7-16); BUN 13 mg/dL (7-18); CALCIUM 8.9 mg/dL (8.5-10.1); CHLORIDE 104 mmol/L (98-107); CO2 30 mmol/L (21-32); CREATININE 1.1 mg/dL (0.6-1.0); GLUCOSE 142 mg/dL (74-106); POTASSIUM 4.5 mmol/L (3.5-5.1); SODIUM 137 mmol/L (136-145)
[2017-01-09 22:01] LABS: ALBUMIN 3.3 g/dL (3.4-5.0); ALKALINE PHOSPHATASE 156 U/L (46-116); MAGNESIUM 1.8 mg/dL (1.8-2.4); SGOT 56 U/L (15-37); SGPT 54 U/L (30-65); TOTAL BILIRUBIN 0.4 mg/dL (<0.1-1.0); TOTAL PROTEIN 7.5 g/dL (6.4-8.2); TROPONIN-I < 0.04 ng/mL (<0.04-0.07)
[2017-01-09 22:02] LABS: APTT 23.6 Seconds (24.5-32.8); PROTIME 10.3 Seconds (9.3-11.4)
[2017-01-10] VITALS (8 sets, daily range): BP systolic 123–185; BP diastolic 63–105
[2017-01-10] MEDS ORDERED: LEXAPRO20 MG PO (02:23)
[2017-01-10 04:00] LABS: HEMATOCRIT 33.6 % (37.0-47.0); HEMOGLOBIN 10.8 gm/dL (12.0-15.0); MCH 26.8 pg (26.0-34.0); MCV 83.8 fL (80.0-100.0); RBC 4.01 mil/uL (4.20-5.00); RDW 15.6 % (10.5-14.5); WBC 6.9 thou/uL (4.0-11.0)
[2017-01-10 04:09] LABS: ANION GAP 6 mmol/L (7-16); BUN 12 mg/dL (7-18); CALCIUM 8.8 mg/dL (8.5-10.1); CHLORIDE 104 mmol/L (98-107); CO2 30 mmol/L (21-32); GLUCOSE 157 mg/dL (74-106); POTASSIUM 4.2 mmol/L (3.5-5.1); SODIUM 140 mmol/L (136-145); TROPONIN-I < 0.04 ng/mL (<0.04-0.07)
[2017-01-11 04:00] VITALS: BP 103/68
[2017-01-11 04:15] LABS: ABSOLUTE NEUTROPHILS 7.6 thou/uL (1.4-8.2); BASOPHILS 0.6 % (0.0-2.0); EOSINOPHILS 0.5 % (0.0-3.0); HEMATOCRIT 34.1 % (37.0-47.0); LYMPHOCYTES 16.9 % (24.0-44.0); MCH 27.2 pg (26.0-34.0); MCHC 32.2 g/dL (28.0-37.0); MCV 84.4 fL (80.0-100.0); MONOCYTES 5.6 % (1.0-8.0); PLATELET COUNT 225 thou/uL (150-400); POLYS 76.4 % (36.0-66.0); RBC 4.04 mil/uL (4.20-5.00); RDW 15.8 % (10.5-14.5); WBC 9.9 thou/uL (4.0-11.0)
[2017-01-11 04:26] LABS: CALCIUM 8.6 mg/dL (8.5-10.1); CREATININE 0.9 mg/dL (0.6-1.0); MAGNESIUM 2.1 mg/dL (1.8-2.4); TOTAL BILIRUBIN 0.6 mg/dL (<0.1-1.0)
[2017-01-11 04:29] LABS: % SATURATION 30 % (20-39); IRON 100 ug/dL (50-170); TIBC 336 ug/dL (250-450); UIBC 236 ug/dL
[2017-01-11 04:46] LABS: MANUAL DIFF NO
[2017-01-11 07:30] VITALS: BP 127/80
[2017-01-11 10:11] LABS: URINE BILIRUBIN NEGATIVE (Negative); URINE BLOOD NEGATIVE (Negative); URINE COLOR YELLOW; URINE GLUCOSE-RANDOM* NEGATIVE (Negative); URINE KETONES NEGATIVE (Negative); URINE PROTEIN (DIPSTICK) NEGATIVE (Negative); URINE SPECIFIC GRAVITY >= 1.030 (1.003-1.035); URINE UROBILINOGEN 0.2 E.U./dl (0.2-1.0)
[2017-01-11 10:16] LABS: URINE LEUKOCYTES-REFLEX 1+ (Negative)
[2017-01-11 10:22] LABS: SQUAMOUS >10 Many /LPF (0-3)
[2017-01-11 10:23] LABS: HYALINE CASTS 0-3 Few /LPF (None Seen); URINE RBC 0-2 Rare /HPF (0-2)
[2017-01-11 10:24] LABS: CRYSTALS None Seen /LPF (None Seen)
[2017-01-11 11:35] VITALS: BP 127/82
[2017-01-11 15:50] VITALS: BP 120/78
[2017-01-11 20:30] VITALS: BP 116/69
[2017-01-12 04:35] VITALS: BP 134/80
[2017-01-12 09:33] VITALS: BP 139/78
[2017-01-12 11:18] VITALS: BP 139/78
[2017-01-12] MEDS ORDERED: PROBIOTIC1 EAC1 PO (11:57)
[2017-01-12] MEDS ORDERED: CIPRO500 MG PO (11:57)
[2017-01-12] MEDS ORDERED: ASPIR 8181 MG PO (11:57)
[2017-01-12] MEDS ORDERED: CYCLOBENZAPRINE5 MG PO (11:57)
[2017-01-12] MEDS ORDERED: COLACE100 MG PO (11:57)
[2017-01-12] MEDS ORDERED: LIPITOR10 MG PO (11:57)
[2017-01-12 12:12] VITALS: BP 139/78
== END 2017-01-12 12:56 | disposition home or self-care (01) | DRG 315 ==
LOC: ER 20:37 → 2N 22:22 → EROBS 22:22 → 2N 01-10 01:27 → ENTRNSPT 01-12 12:29 → EDTRNSPTSTS 01-12 12:31 → 2N 01-12 12:56
PROVIDERS: Emergency Medicine; Internal Medicine; Nurse Practitioner; Nurse Practitioner Family
PROC: 0DB58ZX Excision of Esophagus, Via Natural or Artificial Opening Endoscopic, Diagnostic (ICD-10-PCS; principal; 2017-01-11)
DX: I31.9 Disease of pericardium, unspecified (principal); N39.0 Urinary tract infection, site not specified; G25.81 Restless legs syndrome; I10 Essential (primary) hypertension; E03.9 Hypothyroidism, unspecified; F32.9 Major depressive disorder, single episode, unspecified; E78.5 Hyperlipidemia, unspecified; E66.9 Obesity, unspecified; I35.1 Nonrheumatic aortic (valve) insufficiency; D64.9 Anemia, unspecified; M54.9 Dorsalgia, unspecified; K21.9 Gastro-esophageal reflux disease without esophagitis; J45.909 Unspecified asthma, uncomplicated; K44.9 Diaphragmatic hernia without obstruction or gangrene; K31.7 Polyp of stomach and duodenum; K29.70 Gastritis, unspecified, without bleeding; Z86.718 Personal history of other venous thrombosis and embolism; Z90.49 Acquired absence of other specified parts of digestive tract; Z90.89 Acquired absence of other organs; Z90.710 Acquired absence of both cervix and uterus; Z68.26 Body mass index [BMI] 26.0-26.9, adult; Z88.8 Allergy status to other drugs, medicaments and biological substances; Z88.2 Allergy status to sulfonamides; Z87.11 Personal history of peptic ulcer disease
CPT/HCPCS: 10081; 62110; 62900; 70005

== ENCOUNTER 2018-11-18 16:55 | Inpatient (IN) | payer OTHER ==
[~2018-11-18] VITALS: Ht 165.1 cm; Wt 93.0 kg
[~2018-11-18 16:55] MED LIST changes: +ASPIR 8181 MG PO; +CIPRO500 MG PO; +COLACE100 MG PO; +LEXAPRO20 MG PO; +LIPITOR10 MG PO; +PROBIOTIC1 EAC1 PO
[2018-11-18 16:57] VITALS: BP 129/72
[2018-11-18 18:35] LABS: HEMATOCRIT 32.9 % (37.0-47.0); HEMOGLOBIN 10.3 gm/dL (12.0-15.0); MCH 26.2 pg (26.0-34.0); MCHC 31.2 g/dL (28.0-37.0); MCV 83.9 fL (80.0-100.0); PLATELET COUNT 351 thou/uL (150-400); RBC 3.93 mil/uL (4.20-5.00); RDW 16.7 % (10.5-14.5); WBC 6.5 thou/uL (4.0-11.0)
[2018-11-18 18:46] LABS: CALCIUM 9.1 mg/dL (8.5-10.1); CREATININE 1.2 mg/dL (0.6-1.0); POTASSIUM 4.1 mmol/L (3.5-5.1)
[2018-11-18 18:52] LABS: ALBUMIN 3.1 g/dL (3.4-5.0); TOTAL BILIRUBIN 0.4 mg/dL (<0.1-1.0); TOTAL PROTEIN 8.3 g/dL (6.4-8.2)
[2018-11-18 19:21] LABS: ABSOLUTE NEUTROPHILS 3.5 thou/uL (1.4-8.2)
[2018-11-18 19:22] LABS: ANISOCYTOSIS 1+; POLYCHROMASIA SLIGHT
[2018-11-18 21:17] VITALS: BP 141/70
[2018-11-18 21:45] VITALS: BP 139/71
[2018-11-18 22:18] VITALS: BP 133/77
[2018-11-19 05:54] VITALS: BP 156/80
[2018-11-19 07:51] VITALS: BP 140/72
--- NOTE | 2018-11-19 08:23 | NUR ---
PT ARRIVED ON UNIT FROM ER. ADMITTED WITH LEFT INTRACTABLE KNEE PAIN POST LTK IN JULY. ANBULATING TO BATHROOM WITH CANE AND STANDBY MANSOOR AND IS TOLERATING FAIR. PERCOCET AND FENTANYL PROVIDING PAIN RELIEF. RESTING COMFORTABLY. NO NEEDS VOICED. CALL LIGHT WITHIN REACH. WILL CONTINUE TO PROVIDE FREQUENT OBSERVATION.
--- NOTE | 2018-11-19 13:05 | NUR ---
ASSESMENT COMPLETED. VSS. A/O. DENIES PAIN. NO NOTED SOA. NO NV. PT RESTING IN CHAIR APPEARS COMFORTABLE. PAIN MEDS GIVEN ORDERED WILL CONT. TO MONITOR.
[2018-11-19 16:16] VITALS: BP 120/58
[2018-11-19 16:47] LABS: BF NUCLEATED CELLS 895; BF RBC 307116; CLARITY TURBID; COLOR RED; TOTAL VOLUME 10 mL
[2018-11-19 18:01] LABS: BF CRYSTALS No Crystals seen
[2018-11-19 18:10] LABS: SOURCE KNEE JOINT
[2018-11-19 18:16] LABS: BF MACROPHAGE 7; BF NEUTROPHILS 80
[2018-11-19 19:56] VITALS: BP 127/61
--- NOTE | 2018-11-20 03:54 | NUR ---
PT AMBULATING TO BATHRROM WITH CANE AND ASSIST X1 AND IS TOLERATING FAIR. PERCOCET AND FENTANYL PROVIDING PAIN RELIEF. RESTING COMFORTABLY. NO NEEDS VOICED. CALL LIGHT WITHIN REACH. WILL CONTINUE TO PROVIDE FREQUENT OBSERVATION.
[2018-11-20 04:25] VITALS: BP 142/75
[2018-11-20 07:06] VITALS: BP 139/42
[2018-11-20 07:07] LABS: HEMOGLOBIN 10.5 gm/dL (12.0-15.0); MCH 26.7 pg (26.0-34.0); MCHC 31.9 g/dL (28.0-37.0); MCV 83.8 fL (80.0-100.0); RBC 3.93 mil/uL (4.20-5.00); RDW 16.5 % (10.5-14.5); WBC 5.6 thou/uL (4.0-11.0)
[2018-11-20 07:29] LABS: CALCIUM 9.3 mg/dL (8.5-10.1); POTASSIUM 3.9 mmol/L (3.5-5.1)
--- NOTE | 2018-11-20 08:09 | NUR ---
ASSESMENT COMPLETED. VSS. A/O. C/O KNEE PAIN THIS AM MANAGED BY MEDS ORDERED- SEE JUN. NO NOTED SOA. UP AD CHERRI. PT RESTING IN CHAIR AT THIS TIME. NO OTHER CONCERNS VOICED. WILL CONT. TO MONITOR.
--- NOTE | 2018-11-20 11:46 | NUR ---
RD consult received for "diet". Pt not in room at time of visit. Breakfast tray observed, ate 100%. Was previously on heart healthy diet which was changed to regular. Low nutrition risk
--- NOTE | 2018-11-20 18:20 | NUR ---
NO CHANGE SINCE AM ASSESMENT. PAIN CONSTANT- MANAGED BY MEDS ORDERED. WILL CONT. TO MONITOR.
[2018-11-20 20:15] VITALS: BP 103/59
[2018-11-21 01:09] LABS: GLYCOHEMOGLOBIN (HGB A1C) 7.9 % (4.8-5.6)
--- NOTE | 2018-11-21 03:44 | NUR ---
ASSUMED PT CARE AROUND 1900. A&OX4. C/O LEFT KNEE PAIN. PAIN MEDICATION GIVEN WITH PARTIAL PAIN RELIEF. PT SLEPT MOST OF THE NIGHT. RESP EVEN AND UNLABORED. LEFT KNEE SLIGHTLY SWOLLEN AND RED. NO OTHER COMPLAINTS DURING THE NIGHT. PROGRESSING SLOWLY TOWARD POC GOALS. WILL CONTINUE TO MONITOR FURTHER.
[2018-11-21 05:00] VITALS: BP 108/68
[2018-11-21 09:52] VITALS: BP 98/55
--- NOTE | 2018-11-21 12:34 | NUR ---
ASSESSMENT-PT HAD BEEN AT [facility] BUT HAD D'CD HOME WITH [facility]. PT HAS A CLEANING PERSON EVERY 2 WKS. SHE HAS HER GROCERIES DELIVERED. HER FRIEND IS TAKING CARE OF HIS LITTLE DOG. PT HAS A SHOWER CHAIR AND BARS AROUND HER TOILET. FOLLOWING TO ASSIST WITH DC PLANNING.
[2018-11-21 17:04] VITALS: BP 96/56
[2018-11-21 19:08] VITALS: BP 106/74
[2018-11-22 03:54] VITALS: BP 123/77
--- NOTE | 2018-11-22 04:39 | NUR ---
ASSUMED CARE OF PT @1900 PT ASSESSED AT START OF SHIFT. A&OX4 AT THIS SHIFT C/O PAIN LFT KNEE PAIN. PAIN MEDS GIVEN FOR MANAGEMENT SEE EMAR PARTIAL PAIN RELIEF AFTERWARDS. POC DONE AND EVENING MEDS GIVEN WILL CONTINUE TO MONITOR TILL EOS
[2018-11-22 05:41] LABS: HEMATOCRIT 30.5 % (37.0-47.0); HEMOGLOBIN 9.4 gm/dL (12.0-15.0); MCH 26.3 pg (26.0-34.0); MCV 84.8 fL (80.0-100.0); RBC 3.59 mil/uL (4.20-5.00); RDW 16.8 % (10.5-14.5); WBC 5.2 thou/uL (4.0-11.0)
[2018-11-22 07:41] VITALS: BP 126/63
[2018-11-22 12:35] VITALS: BP 126/63
--- NOTE | 2018-11-22 16:38 | NUR ---
RECEIVED CALL FROM KANDY GILLIS CASEMANAGER FROM [employer] AND HE TELLS ME PT HAS HAD 11 ER VISITS AT [facility] SINCE FEB. DR MCGEE [phone] DID HER KNEE SURGERIES AND HAS BEEN QUESTIONING POSSIBLE [place] DX AND PAIN MED ADICTION. DR MCGEE WOULD DEYA HER DRESSING AND WAS SEEING HER ON A WEEKLY BASIS IN THE OFFICE AND WHEN SHE WOULD RETURN IT WAS APPARENT THAT SHE HAD UNWRAPPED AND RE-WRAPPED HER KNEE DRESSINGS. KANDY WAS QUESTIONING A PSYCH CONSULT FOR ANXIETY, DEPRESSION PAIN ISSUES. THIS CALL WAS RECEIVED AT [address] SEYMOUR WAS CALLED TO PASSS THIS INFORMATION ON. HE REVIEWED PT'S INFO AND HAD ALREADY PLANNED TO DC HOME TODAY. WILL ASK DC INSTRUCTIONAL LEADER TO FAX RESUMPTION OF HH ORDERS TO [facility] AND REQUEST ACCOUNTS PAYABLE TECHNICIAN TO SEE PT AT HOME FOR ANXIETY AND PAIN ISSUES.
[2018-11-22 16:55] VITALS: BP 121/61
[2018-11-22 16:57] VITALS: BP 126/63
--- NOTE | 2018-11-22 17:10 | NUR ---
PT DISCHARGING TODAY TO HOME WITH [facility] LEFT MSG WITH INTAKE THAT PT DISCHARGING TODAY THAT DC ORDERS ARE FAXED. DCP WILL F/U WITH [facility] IN THE MORNING TO CONFIRM THEY RECEIVED DC ORDERS.
[2018-11-22 17:41] VITALS: BP 126/63
== END 2018-11-22 18:02 | disposition home health service (06) | DRG 565 ==
LOC: ER 16:55 → EROBS 20:54 → 4E 20:54
PROVIDERS: Hospitalist; Nurse Practitioner Acute Care; Orthopaedic Surgery Sports Medicine; Physician Assistant; ADMIT Internal Medicine
PROC: 0S9D3ZZ Drainage of Left Knee Joint, Percutaneous Approach (ICD-10-PCS; principal; 2018-11-19)
DX: M25.462 Effusion, left knee (principal); E46 Unspecified protein-calorie malnutrition; G25.81 Restless legs syndrome; I10 Essential (primary) hypertension; J45.909 Unspecified asthma, uncomplicated; E03.9 Hypothyroidism, unspecified; F32.9 Major depressive disorder, single episode, unspecified; E78.5 Hyperlipidemia, unspecified; R73.9 Hyperglycemia, unspecified; D64.9 Anemia, unspecified; Z68.34 Body mass index [BMI] 34.0-34.9, adult; Z79.899 Other long term (current) drug therapy; Z90.49 Acquired absence of other specified parts of digestive tract; Z86.718 Personal history of other venous thrombosis and embolism; Z90.710 Acquired absence of both cervix and uterus; Z87.891 Personal history of nicotine dependence; Z88.2 Allergy status to sulfonamides; Z88.8 Allergy status to other drugs, medicaments and biological substances; Z80.7 Family history of other malignant neoplasms of lymphoid, hematopoietic and related tissues
CPT/HCPCS: 10084; 10183

== ENCOUNTER 2018-12-05 16:22 | Emergency (ER) | payer OTHER ==
[~2018-12-05] VITALS: Ht 165.1 cm; Wt 91.2 kg
[2018-12-05 16:58] LABS: ABSOLUTE NEUTROPHILS 4.3 thou/uL (1.4-8.2); EOSINOPHILS 2.6 % (0.0-3.0); HEMATOCRIT 32.1 % (37.0-47.0); HEMOGLOBIN 10.3 gm/dL (12.0-15.0); LYMPHOCYTES 27.5 % (24.0-44.0); MCH 26.3 pg (26.0-34.0); MCHC 32.2 g/dL (28.0-37.0); MCV 81.9 fL (80.0-100.0); MONOCYTES 5.8 % (1.0-8.0); PLATELET COUNT 344 thou/uL (150-400); POLYS 63.1 % (36.0-66.0); RBC 3.92 mil/uL (4.20-5.00); RDW 17.3 % (10.5-14.5); WBC 6.8 thou/uL (4.0-11.0)
[2018-12-05 17:13] LABS: ANION GAP 5 mmol/L (7-16); BUN 12 mg/dL (7-18); CALCIUM 9.7 mg/dL (8.5-10.1); CHLORIDE 101 mmol/L (98-107); CO2 31 mmol/L (21-32); CREATININE 1.1 mg/dL (0.6-1.0); GLUCOSE 162 mg/dL (74-106); POTASSIUM 4.3 mmol/L (3.5-5.1); SODIUM 137 mmol/L (136-145)
[2018-12-05 17:22] LABS: TROPONIN-I <0.06 ng/mL (<0.06)
--- NOTE | 2018-12-05 17:26 | EKG ---
[place] [address] [facility] [place] [address] ELECTROCARDIOGRAM REPORT Name: JEAN CARLOSKENISHAJONATHON REILLY Room #: REG [facility]#: [id number] Admission: 12/05/18 Attend Phys: Discharge: Date of : 59 Report #: [id number] THIS REPORT FOR: //name// 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
[2018-12-05] MEDS ORDERED: VIBRAMYCIN 100100 MG PO (19:02)
[2018-12-05 19:46] VITALS: BP 122/54
== END 2018-12-05 19:56 | disposition home or self-care (01) ==
LOC: ER 16:22
PROVIDERS: Emergency Medicine
DX: J18.9 Pneumonia, unspecified organism (principal); G89.18 Other acute postprocedural pain; M25.562 Pain in left knee; J45.909 Unspecified asthma, uncomplicated; E03.9 Hypothyroidism, unspecified; F32.9 Major depressive disorder, single episode, unspecified; G25.81 Restless legs syndrome; I10 Essential (primary) hypertension; E78.5 Hyperlipidemia, unspecified; Z96.652 Presence of left artificial knee joint; Z87.891 Personal history of nicotine dependence; Z88.2 Allergy status to sulfonamides; Z88.8 Allergy status to other drugs, medicaments and biological substances; Z90.49 Acquired absence of other specified parts of digestive tract; Z98.890 Other specified postprocedural states; Z90.89 Acquired absence of other organs; Z86.718 Personal history of other venous thrombosis and embolism; Z90.710 Acquired absence of both cervix and uterus

== ENCOUNTER 2018-12-06 17:51 | Emergency (ER) | payer OTHER ==
[~2018-12-06] VITALS: Ht 165.1 cm; Wt 91.6 kg
[~2018-12-06 17:51] MED LIST changes: +VIBRAMYCIN 100100 MG PO
[2018-12-06 20:00] LABS: HEMATOCRIT 31.2 % (37.0-47.0); MCH 26.4 pg (26.0-34.0); MCHC 32.1 g/dL (28.0-37.0); MCV 82.2 fL (80.0-100.0); PLATELET COUNT 361 thou/uL (150-400); RDW 17.1 % (10.5-14.5); WBC 7.4 thou/uL (4.0-11.0)
[2018-12-06 20:05] LABS: ANION GAP 8 mmol/L (7-16); BUN 11 mg/dL (7-18); CALCIUM 9.3 mg/dL (8.5-10.1); CHLORIDE 101 mmol/L (98-107); CO2 29 mmol/L (21-32); CREATININE 1.2 mg/dL (0.6-1.0); GLUCOSE 117 mg/dL (74-106); POTASSIUM 3.8 mmol/L (3.5-5.1); SODIUM 138 mmol/L (136-145)
[2018-12-06 20:14] LABS: TROPONIN-I <0.06 ng/mL (<0.06)
[2018-12-06 20:20] LABS: ABSOLUTE NEUTROPHILS 4.7 thou/uL (1.4-8.2)
[2018-12-06 20:21] LABS: ANISOCYTOSIS 1+
[2018-12-06 20:50] VITALS: BP 118/59
--- NOTE | 2018-12-08 17:56 | EKG ---
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 12/08/18 1756 24 24 Amado Nolan MD, [facility] /EPI
== END 2018-12-06 20:50 | disposition home or self-care (01) ==
LOC: ER 17:51
PROVIDERS: Nurse Practitioner
DX: M25.562 Pain in left knee (principal); G89.29 Other chronic pain; R07.89 Other chest pain; J45.909 Unspecified asthma, uncomplicated; E03.9 Hypothyroidism, unspecified; F32.9 Major depressive disorder, single episode, unspecified; E78.5 Hyperlipidemia, unspecified; G25.81 Restless legs syndrome; I10 Essential (primary) hypertension; Z87.891 Personal history of nicotine dependence; Z88.2 Allergy status to sulfonamides; Z88.8 Allergy status to other drugs, medicaments and biological substances; Z90.49 Acquired absence of other specified parts of digestive tract; Z98.890 Other specified postprocedural states; Z90.89 Acquired absence of other organs; Z86.718 Personal history of other venous thrombosis and embolism; Z90.710 Acquired absence of both cervix and uterus; Z96.652 Presence of left artificial knee joint